=== PATIENT | female | born 1940 | race Caucasian/White ===

== ENCOUNTER → 2023-12-10 10:59 | Outpatient (REF) | payer MEDICARE, SELFPAY | LOC: WDC 10:59 | PROVIDERS: ATTENDING PHYSICIAN Obstetrics & Gynecology Gynecology; FAMILY PHYSICIAN Family Medicine | DX: Z12.31 Encounter for screening mammogram for malignant neoplasm of breast (principal) | CPT/HCPCS: 77063; 77067 ==

== ENCOUNTER → 2024-12-10 10:58 | Outpatient (REF) | payer MEDICARE, SELFPAY | LOC: WDC 10:58 | PROVIDERS: ATTENDING PHYSICIAN Obstetrics & Gynecology Gynecology; FAMILY PHYSICIAN Family Medicine | DX: Z12.31 Encounter for screening mammogram for malignant neoplasm of breast (principal) | CPT/HCPCS: 77063; 77067 ==

== ENCOUNTER 2025-01-02 11:07 | Emergency (ER) | payer MEDICARE, SELFPAY ==
[2025-01-02 11:09] VITALS: BP 136/70
--- NOTE | 2025-01-02 12:03 | ED.MUSCINJ ---
HPI-Injury
General
Chief Complaint: Fall
Source: patient
Exam Limitations: none
Time Seen by Provider: 01/02/25 11:46
Nursing documentation reviewed up to this point in time: agreed with
History of Present Illness-Injury
Initial Injury comments:
84-year-old female with history of HTN was going up her steps last night holding something in her left hand and holding onto the railing with her right hand, she slipped on the step and fell injuring her right rib. She denies head injury or any
other injury
Past History
Past History
ED Past Medical History: HTN and Other (Kidney stones)
ED Past Surgical History: Urological (Lithotripsy and stent placement)
Social History
Tobacco: Non-smoker
Alcohol: None
Drug: None
Personal:
Review of Systems
Review of Systems
Allergies reviewed?: Yes
All Other Systems: ROS reviewed and negative except as documented in HPI and ROS
Respiratory: Denies trouble breathing
ABD/GI: Denies abdominal pain or nausea
: Denies incontinence
Musculoskeletal: Reports back pain (Pain right mid ribs); Denies neck pain
Skin: Reports no symptoms
Neurological: Reports no symptoms
Phy Exam
Physical Exam
Physical Exam:
GENERAL: No acute distress. A&Ox3.
CONSTITUTIONAL: Afebrile.
EYES: clear, conjunctivae normal
ENMT: moist mucus membranes, Pharynx nl
RESPIRATORY: Regular respirations, nonlabored, lungs clear.
CARDIOVASCULAR: Regular rate and rhythm, no murmurs, no rubs.
GI: Soft, nontender, normal BS
MUSCULOSKELETAL: No spinal bony tenderness. Tender to palpate over mid right ribs. No bruising or swelling here. Moves with ease. Well perfused.
SKIN: Warm, dry, pink
PSYCH: Normal mood and affect. Well kept, interactive and appropriate
NEUROLOGIC: Awake, alert and oriented. No focal neurological deficits
Injury Course
Orders/Labs/Results
Orders:
Orders
01/02/25 11:13
Ribs, Right 3 View W/PA Chest [CR Ribs-right 3 Vw W/pa Chest*] Urgent
Comment:
Reason For Exam: fall/pain
MDM/Problems Addressed
Differential Diagnosis Includes:
Rib contusion, rib fracture.
MDM/Problems Addressed:
84-year-old female with history of HTN was going up her steps last night holding something in her left hand and holding onto the railing with her right hand, she slipped on the step and fell injuring her right rib. She denies head injury or any
other injury
X-ray right ribs initially read by this examiner: Nondisplaced fracture of the lateral sixth rib
Reading confirmed by radiology read.
Rib belt applied with stated much improvement in pain.
Patient ambulating well, no other injury, discharged to care of friend.
*Critical Care Note
Total Time (30-74mins, 75-104mins- exclusive of procedures): Not Applicable
ED Attending Note
-
Portions of this chart may have been created with voice recognition software.� Occasional wrong word or��sound alike� substitutions may have occurred due to the inherent limitations of voice recognition software.
Discharge Plan
Departure
Patient Disposition: Home (Routine Discharge)
Date of Disposition: 01/02/25
Time of Disposition: 12:00
Patient with high blood pressure during this ER visit?: No
Condition: Good
Discharge Problem:
Fall from slip, trip, or stumble, Rib fracture
Instructions: Rib fracture or bruised rib - ED discharge instructions
Prescriptions:
No Action
calcium carbonate [Calcium 600] 600 MG tablet
600 mg PO BID
amlodipine 10 MG tablet
10 mg PO DAILY
hydrochlorothiazide 25 MG tablet
25 mg PO DAILY
PreserVision Lutein 1 EACH capsule
1 ea PO BID
therapeutic multivitamin Tablet
1 tab PO DAILY
potassium citrate 10 mEq (1,080 mg) Tablet Extended Release
10 meq PO BID
Referrals:
Yvette Redmond MD [Active] - As needed
Activity Restrictions/Additional Instructions:
As we discussed, Tylenol as needed for pain
Wear the rib belt as long as it helps
Be sure to take 10 deep breaths every hour while awake for the next 2 weeks
Interventions
Interventions:
*Risk Screen - Suicide Last Done: 01/02/25 12:17
*General Assessment Last Done: 01/02/25 11:09
*Neglect/Abuse Screening Last Done: 01/02/25 12:17
*ED COVID-19 Vaccine History Last Done: 01/02/25 11:12
*Nursing Disposition Last Done: 01/02/25 12:16
Discharge Date and Time
Discharge Date/Time: 01/02/25 12:17
Print Language: PERSIAN
== END 2025-01-02 12:17 | disposition home or self-care (01) ==
LOC: EMR 11:07
PROVIDERS: EMERGENCY PHYSICIAN Emergency Medicine; FAMILY PHYSICIAN Family Medicine
DX: S22.31XA Fracture of one rib, right side, initial encounter for closed fracture (principal); W01.0XXA Fall on same level from slipping, tripping and stumbling without subsequent striking against object, initial encounter; I10 Essential (primary) hypertension; Z87.442 Personal history of urinary calculi
CPT/HCPCS: 99283; 71101

== ENCOUNTER 2025-01-14 17:47 | Inpatient (IN) | payer MEDICARE, SELFPAY ==
[2025-01-12 11:57] VITALS: BP 151/93
--- NOTE | 2025-01-12 13:21 | ED.GENMED ---
History of Present Illness
<KELY Bustamante - Last Filed: 01/13/25 15:19>
General
Chief Complaint: Musculo-Skeletal Complaint
Source: patient and other
Time Seen by Provider: 01/12/25 13:00
Nursing documentation reviewed up to this point in time: agreed with
History of Present Illness
History of Present Illness:
Patient is a 10-year-old female brought by her neighbor. Patient was sent by her family doctor for increasing dementia weight loss and new extreme flexion of her cervical spine. Patient apparently fell January 03 and was seen here in the ER diagnosed
with a rib fracture. Neighbor reports patient's neck flexion is relatively new.
Patient's is in a rehab facility and patient has no family. Department of aging is presently involved however family doctor requesting social work for possible placement as she is not safe to live on her own.
Patient does complain of upper back pain and has lidocaine patch in place.
she is a poor historian.
Past History
<KELY Bustamante - Last Filed: 01/13/25 15:19>
Past History
ED Past Medical History: HTN and Other (Kidney stones)
ED Past Surgical History: Urological (Lithotripsy and stent placement)
Social History
Tobacco: Non-smoker
Alcohol: None
Drug: None
Personal:
Review of Systems
<KELY Bustamante - Last Filed: 01/13/25 15:19>
Review of Systems
Allergies reviewed?: Yes
Other source history: other (pts PCP and neighbor )
All Other Systems: ROS reviewed and negative except as documented in HPI and ROS
Constitutional: Reports no symptoms
Respiratory: Reports no symptoms
Cardiac: Reports no symptoms
ABD/GI: Reports no symptoms
: Reports no symptoms
Musculoskeletal: Reports back pain
Skin: Reports no symptoms
Neurological: Reports no symptoms
Psychiatric: Reports no symptoms
Phy Exam
<KELY Bustamante - Last Filed: 01/13/25 15:19>
General Physical Exam
General Presentation: no apparent distress
General age: appears stated age
General Skin: warm and dry
General Habitus: elderly, failure to thrive and frail
General Mental: alert
General Hydration: appears well hydrated
Course
<KELY Bustamante - Last Filed: 01/13/25 15:19>
Orders/Labs/Results
Orders:
Orders
01/12/25 13:20
IV Insert/Care/Rem.- Treatment PRN
01/12/25 13:26
Electrocardiogram (*1) Stat
Reason for Study: Other
Other Reason for Exam: chest pain
EKG- Treatment ONCE
01/12/25 14:06
Complete Blood Count/With Diff Urgent
Comprehensive Metabolic Panel Urgent
Urinalysis Reflex To Culture Urgent
Date Specimen was Collected: 01/12/25
Time Specimen was Collected: 13:29
Urine Microscopic Reflex Cult Urgent
Urine Culture Urgent
MAYCOL Source: U
Specimen Description:
Date Specimen was Collected: 01/12/25
Time Specimen was Collected: 13:29
01/12/25 14:50
CR Thoracic Spine 3 Views Urgent
Reason For Exam: pain
01/12/25 15:05
CefTRIAXone [Rocephin] 1,000 mg IV NOW STA
01/12/25 15:29
Sterile Water [Sterile Water For Injection] 10 ml .ROUTE .STK-MED ONE
01/12/25 15:42
Admit/Transfer Patient As Directed
Co-Sign Provider:
Level of Care: Observation services
Assign to:: Medical/Surgical
Physician / Group: Samir
Diagnosis: Confusion
Code Status As Directed
Resuscitation Status: Full Code
PRN Pain Medication Management As Directed
May give lesser potent ordered pain med per pt: Yes
preference::
Protocol:: Medication orders for pain may be administered in a
manner that supports deferring to patient preference
when the pt is:
- Requesting an ordered lesser potent pain medication.
Least to most potent pain medications are defined
as: acetaminophen < NSAID < tramadol < opioids
(morphine, oxycodone, hydromorphone).
- Requesting a lesser dose of the same medication IF
ORDERED.
- Requesting a less intrusive route of administration
if both routes are prescribed by the provider (PO <
IV).
01/12/25 15:59
CR Chest - 2 Views Urgent
Comment:
Reason For Exam: confusion
01/12/25 16:23
Blood Culture Q30M
MAYCOL Source: Blood/Venous
Specimen Description:
01/12/25 16:24
Blood Culture Q30M
MAYCOL Source: Blood/Venous
Specimen Description:
01/12/25 18:22
Acetaminophen [Tylenol] 650 mg PO Q4HPRN PRN
Enoxaparin Sodium [Lovenox] 40 mg SC QPM
01/12/25 18:22
Case Management Consult Once
Case Management Consult: Discharge Planning
Comment: Patient's currently at [facility] and schedule from discharge on Saturday
DIETARY IP CONSULT Routine
Reason for Consult: weight loss
Activity As Directed
Activity Level: Out of Bed-Early Mobility
With Assistance
Pneumatic Compression Sleeves As Directed
Type: Knee high
Vital Signs As Directed
Frequency: Per unit guidelines
Ot Eval And Treat Routine
Pt Eval And Treat Routine
Activity Level: Out of Bed-Early Mobility
DX Deep Vein Thrombosis Video Routine
DX Deep Vein Thrombosis Video Routine
01/13/25 06:35
Basic Metabolic Panel IN AM
Complete Blood Count/No Diff IN AM
01/13/25 08:00
Amlodipine [Norvasc] 10 mg PO DAILY
01/13/25 16:00
CefTRIAXone [Rocephin] 1,000 mg IV Q24H
Abnormal Lab Results
01/12/25
14:06
MCH 33.6 H pg
(27.0-31.0)
Absolute Lymphs (auto) 0.7 L 10^3/uL
(1.2-3.4)
Neutrophils % 76.9 H %
(42.2-75.2)
Lymphocytes % 10.3 L %
(20.5-51.1)
BUN 31 H mg/dl
(7-17)
Glucose 132 H mg/dl
(70-99)
AST 42 H U/L
(14-36)
Urine Ketones 1+ A
(Negative)
Ur Occult Blood Reflex 2+ A
(Negative)
Leukocyte Esterase Rfl 2+ A
(Negative)
Urine RBC 3-6 A /HPF
(0-2)
Urine WBC (Reflex) 40-50 A /HPF
(0-5)
Urine Bacteria (Reflex) Moderate A
(Negative)
Urine Albumin (Reflex) 3+ A
(Neg - Trace)
01/12/25 14:06
01/12/25 14:06
Vital Signs
Initial and Last Documented VS:
Initial Vital Signs
Temp Pulse Resp BP Pulse Ox
97.6 F 87 20 151/93 98
01/12/25 11:57 01/12/25 11:57 01/12/25 11:57 01/12/25 11:57 01/12/25 11:57
Last Documented Vital Signs
Temp Pulse Resp BP Pulse Ox
98.6 F 68 16 137/82 96
01/13/25 07:00 01/13/25 08:34 01/13/25 07:00 01/13/25 08:34 01/13/25 11:56
<Cecil Umana PA-C - Last Filed: 01/12/25 15:19>
Orders/Labs/Results
Orders:
Orders
01/12/25 13:20
IV Insert/Care/Rem.- Treatment PRN
01/12/25 13:26
Electrocardiogram (*1) Stat
Reason for Study: Other
Other Reason for Exam: chest pain
EKG- Treatment ONCE
01/12/25 14:06
Complete Blood Count/With Diff Urgent
Comprehensive Metabolic Panel Urgent
Urinalysis Reflex To Culture Urgent
Date Specimen was Collected: 01/12/25
Time Specimen was Collected: 13:29
Urine Microscopic Reflex Cult Urgent
Urine Culture Urgent
MAYCOL Source: U
Specimen Description:
Date Specimen was Collected: 01/12/25
Time Specimen was Collected: 13:29
01/12/25 14:50
CR Thoracic Spine 3 Views Urgent
Reason For Exam: pain
01/12/25 15:05
CefTRIAXone [Rocephin] 1,000 mg IV NOW STA
01/12/25 15:29
Sterile Water [Sterile Water For Injection] 10 ml .ROUTE .STK-MED ONE
01/12/25 15:42
Admit/Transfer Patient As Directed
Co-Sign Provider:
Level of Care: Observation services
Assign to:: Medical/Surgical
Physician / Group: Samir
Diagnosis: Confusion
Code Status As Directed
Resuscitation Status: Full Code
PRN Pain Medication Management As Directed
May give lesser potent ordered pain med per pt: Yes
preference::
Protocol:: Medication orders for pain may be administered in a
manner that supports deferring to patient preference
when the pt is:
- Requesting an ordered lesser potent pain medication.
Least to most potent pain medications are defined
as: acetaminophen < NSAID < tramadol < opioids
(morphine, oxycodone, hydromorphone).
- Requesting a lesser dose of the same medication IF
ORDERED.
- Requesting a less intrusive route of administration
if both routes are prescribed by the provider (PO <
IV).
01/12/25 15:59
CR Chest - 2 Views Urgent
Comment:
Reason For Exam: confusion
01/12/25 16:23
Blood Culture Q30M
MAYCOL Source: Blood/Venous
Specimen Description:
01/12/25 16:24
Blood Culture Q30M
MAYCOL Source: Blood/Venous
Specimen Description:
01/12/25 18:22
Acetaminophen [Tylenol] 650 mg PO Q4HPRN PRN
Enoxaparin Sodium [Lovenox] 40 mg SC QPM
01/12/25 18:22
Case Management Consult Once
Case Management Consult: Discharge Planning
Comment: Patient's currently at [facility] and schedule from discharge on Saturday
DIETARY IP CONSULT Routine
Reason for Consult: weight loss
Activity As Directed
Activity Level: Out of Bed-Early Mobility
With Assistance
Pneumatic Compression Sleeves As Directed
Type: Knee high
Vital Signs As Directed
Frequency: Per unit guidelines
Ot Eval And Treat Routine
Pt Eval And Treat Routine
Activity Level: Out of Bed-Early Mobility
DX Deep Vein Thrombosis Video Routine
DX Deep Vein Thrombosis Video Routine
01/13/25 06:35
Basic Metabolic Panel IN AM
Complete Blood Count/No Diff IN AM
01/13/25 08:00
Amlodipine [Norvasc] 10 mg PO DAILY
01/13/25 16:00
CefTRIAXone [Rocephin] 1,000 mg IV Q24H
Abnormal Lab Results
01/12/25
14:06
MCH 33.6 H pg
(27.0-31.0)
Absolute Lymphs (auto) 0.7 L 10^3/uL
(1.2-3.4)
Neutrophils % 76.9 H %
(42.2-75.2)
Lymphocytes % 10.3 L %
(20.5-51.1)
BUN 31 H mg/dl
(7-17)
Glucose 132 H mg/dl
(70-99)
AST 42 H U/L
(14-36)
Urine Ketones 1+ A
(Negative)
Ur Occult Blood Reflex 2+ A
(Negative)
Leukocyte Esterase Rfl 2+ A
(Negative)
Urine RBC 3-6 A /HPF
(0-2)
Urine WBC (Reflex) 40-50 A /HPF
(0-5)
Urine Bacteria (Reflex) Moderate A
(Negative)
Urine Albumin (Reflex) 3+ A
(Neg - Trace)
01/12/25 14:06
01/12/25 14:06
Vital Signs
Initial and Last Documented VS:
Initial Vital Signs
Temp Pulse Resp BP Pulse Ox
97.6 F 87 20 151/93 98
01/12/25 11:57 01/12/25 11:57 01/12/25 11:57 01/12/25 11:57 01/12/25 11:57
Last Documented Vital Signs
Temp Pulse Resp BP Pulse Ox
98.6 F 68 16 137/82 96
01/13/25 07:00 01/13/25 08:34 01/13/25 07:00 01/13/25 08:34 01/13/25 11:56
<KELY Bustamante - Last Filed: 01/13/25 15:19>
MDM/Problems Addressed
MDM/Problems Addressed:
As documented patient is an 84-year-old female sent by family doctor for evaluation. As per PCP via [place] text patient has had a weight loss looks disheveled failure to thrive more confused than normal she was seen here at the end of December for rib
fracture and she appears more hunched over as well. Patient does claim mild upper back discomfort she is here with a neighbor. She does live alone in area of aging is involved. As per family doctor patient will likely need case management social
worker involved and possible placement. Patient does have a UTI will admit for UTI however will check for dehydration. Patient is afebrile with normal white count.
Chronic conditions affecting care:
Worsening dementia presently living alone in rehab
<Cecil Umana PA-C - Last Filed: 01/12/25 15:19>
*Critical Care Note
Total Time (30-74mins, 75-104mins- exclusive of procedures): Not Applicable
ED Attending Note
<KELY Bustamante - Last Filed: 01/13/25 15:19>
-
Portions of this chart may have been created with voice recognition software.� Occasional wrong word or��sound alike� substitutions may have occurred due to the inherent limitations of voice recognition software.
Discharge Plan
Departure
Patient Disposition: Admit
Date of Disposition: 01/12/25
Time of Disposition: 15:19
Presentation/result/management discussed w/ accepting MD/DO: Hospitalist
Discharge Problem:
Acute UTI
Interventions
Interventions:
*Risk Screen - Suicide Last Done: 01/12/25 18:35
*General Assessment Last Done: 01/12/25 11:57
*Neglect/Abuse Screening Last Done: 01/12/25 11:57
*ED- Fall Risk Assessment Last Done: 01/12/25 13:45
*ED COVID-19 Vaccine History Last Done: 01/12/25 18:35
*Nursing Disposition Last Done: 01/12/25 18:31
ED-Musculoskeletal Assessment Last Done: 01/12/25 13:45
ED-Psychological Assessment Last Done: 01/12/25 13:45
Discharge Date and Time
Discharge Date/Time: 01/12/25 18:20
[2025-01-12 13:40] VITALS: BMI 17.5
[2025-01-12 14:00] VITALS: BP 140/78
[2025-01-12 14:21] LABS: Urine Albumin 3+ (Neg - Trace); Urine Bilirubin Negative (Negative); Urine Character Clear (Clear); Urine Color Yellow; Urine Glucose Negative (Negative); Urine Ketone 1+ (Negative); Urine Leukocyte 2+ (Negative); Urine Nitrite Negative (Negative); Urine Occult Blood 2+ (Negative); Urine Urobilinogen Negative (Neg - 1+)
[2025-01-12 14:23] LABS: % Basophils 0.6 % (0-2); % Eosinophils 3.3 % (0-6); % Immature Granulocytes 0.5 % (0-0.5); % Lymphocytes 10.3 % (20.5-51.1); % Monocytes 8.4 % (1.7-9.3); % Neutrophils 76.9 % (42.2-75.2); Absolute Eosinophils 0.2 10^3/uL (0-0.7); Absolute Lymphocytes 0.7 10^3/uL (1.2-3.4); Absolute Monocytes 0.5 10^3/uL (0.1-0.6); Absolute Neutrophils 4.9 10^3/uL (1.4-6.5); Hematocrit 42.7 % (37.0-47.0); Hemoglobin 14.6 g/dL (12.0-16.0); Mean Corp Hgb Conc. 34.2 g/dL (33.0-37.0); Mean Corpuscular Hgb 33.6 pg (27.0-31.0); Mean Corpuscular Volume 98.2 fL (81.0-99.0); Mean Platelet Volume 9.1 fL (7.4-10.4); Nucleated Red Blood Cells % 0 %; Platelet Count 298 10^3/uL (130-400); Red Blood Cell Count 4.35 10^6/uL (4.20-5.40); Red Cell Dist. Width 12.8 % (11.5-14.5); White Blood Cell Count 6.4 10^3/uL (4.8-10.8)
[2025-01-12 14:59] LABS: Urine Urothelial Cell 0-2 /LPF (FEW)
[2025-01-12 15:02] LABS: Urine Bacteria Moderate (Negative); Urine Calcium Oxalate Crystals Present; Urine White Cell 40-50 /HPF (0-5)
[2025-01-12 15:03] LABS: Urine Mucus Moderate
[2025-01-12 15:11] LABS: ALT (SGPT) 33 U/L (0-35); AST (SGOT) 42 U/L (14-36); Albumin 4.4 g/dl (3.5-5.0); Alkaline Phosphatase 52 U/L (38-126); Blood Urea Nitrogen 31 mg/dl (7-17); Calcium 9.5 mg/dl (8.4-10.2); Carbon Dioxide 28 mmol/L (22-30); Chloride 106 mmol/L (98-107); Estimated Creatinine Clearance 45 ml/min; Glucose 132 mg/dl (70-99); Potassium 3.9 mmol/L (3.5-5.1); Sodium 140 mmol/L (135-145); Total Bilirubin 0.6 mg/dl (0.2-1.3); Total Protein 6.5 g/dl (6.3-8.2); eGFR > 60.00
[2025-01-12] MEDS: ROCEPHIN 1000 MG IV (15:30)
--- NOTE | 2025-01-12 15:45 | HPS.HSE ---
Family Physician
-
Family Physician: Yvette Redmond
Chief Complaint
-
Confusion and Weight Loss
History of Present Illness
Patient is an 84 y/o female past medical history of hypertension who presents with increased confusion. Additional history obtain from patient's neighbor at the bedside. Neighbor initially noted some confusion after the holidays. Patient's
sustained a heart attack about a month ago and has been at a fdc facility since that time. Over the last month the neighbor has noted signficant decline in the patient particularly increased confusion. Patient saw her primary care
provider today who notes a 10 lb weight loss. Neighbor expresses concern that patient is not caring for herself and not eating much at home.
Medical History
Past Medical History
Past Medical History: Reports Other
Additional Past Medical History:
Essential Hypertension
Hyperlipidemia
Osteoporosis
Nephrolithiases
Macular Degeration
Past Surgical History: Reports Other
Additional Past Surgical History:
Inguinal Hernia Repair
Wrist ORIF
Right Breast Biopsy
Left Hip Hemiarthroplasty
Lithotripsy
Social History
Tobacco: Non-smoker
Alcohol: None
Personal:
Living: Other (Patient currently living alone while is at a SNF)
Family History
Family History: Not pertinent
Allergies / Home Medications
Allergies reflects when Allergies were last updated in [facility].
Home Medications with original date entered in [facility]
Allergy/Medication List:
Allergies
Allergy/AdvReac Type Severity Reaction Status Date / Time
No Known Drug Allergies Allergy Unknown Verified 01/12/25 11:57
Home Medications
amlodipine 10 mg tablet 10 mg PO DAILY 11/10/12
potassium citrate 10 mEq (1,080 mg) tablet,extended release 10 meq PO BID 03/08/22
therapeutic multivitamin 1 tab PO DAILY 03/08/22
calcium 500 mg (as carbonate)-vitamin D3 10 mcg (400 unit) tablet (Calcium 500 + D) 1 tab PO BID 01/12/25
hydrochlorothiazide 25 mg tablet 25 mg PO DAILY 01/12/25
vitamins A,C,[id number] 2,148 mcg-113 mg-45 mg-17.4 mg tablet (PreserVision AREDS) 1 tab PO BID 01/12/25
Review of Systems
-
A 12 point ROS was completed and negative except as noted: Yes
Constitutional: Denies Fever
Respiratory: Denies Cough or Trouble Breathing
Cardiac: Denies Chest Pain or Palpitations
Abdomen/GI: Denies Abdominal Pain, Nausea, Vomiting or Diarrhea
: Denies Dysuria or Frequency
Physical Exam
Vital Signs
Vital Signs
Temp Pulse Resp BP Pulse Ox
97.6 F 69 17 140/78 99
01/12/25 11:57 01/12/25 14:30 01/12/25 14:30 01/12/25 14:00 01/12/25 14:30
Physical Exam
General: Comfortable, Conversant and Other (Disheveled appearing)
HEENT: Anicteric and Moist mucous membranes
Respiratory: Clear and Non Labored Respirations
Cardiac: S1/S2 and Regular Rhythm
GI: Soft and Non Tender
Rectal: Deferred by Provider
Musculoskeletal: No Clubbing, No Cyanosis and No Edema
Skin: Warm and Dry
Neuro: Awake, Alert and Nonfocal/grossly intact
Psych: Calm
Laboratory Results
-
01/12/25 14:06
01/12/25 14:06
Laboratory Results
Total Bilirubin 0.6 mg/dl (0.2-1.3) 01/12/25 14:06
AST 42 U/L (14-36) H 01/12/25 14:06
ALT 33 U/L (0-35) 01/12/25 14:06
Alkaline Phosphatase 52 U/L (38-126) 01/12/25 14:06
Data Reviewed
-
Lab Data: Labs Reviewed by me
Impression/Plan
-
Increased Confusion, suspect likely related to progressive dementia, possibly exacerbated by infection / UTI
-Urinalysis is abnormal - Continue empiric ceftriaxone pending urine culture
-Check CXR
-Check blood cultures
Weight Loss
-10lb weight loss noted by PCP suspect related to nutritional deficiency from poor oral intake
-Consult Dietary
Essential Hypertension
-Continue amlodipine
-Hold HCTZ
DVT proph: Lovenox
Code Status: Full Code
--- NOTE | 2025-01-12 16:05 | W.PN.UPDATE ---
Update Note
Progress Note Update
Patient was independently examined and I agree with H&P written on the same day. In addition: 84yo F sent by PCP due to onbgoing weight loss and worsening confusion for past couple of months
-UTI
-Adult FTT
Ceftriaxone, PT/OT, placement
We have spent at least 78min admitting the patient
--- NOTE | 2025-01-12 18:15 | EDRN ---
Patient taken to room 408-1 on stretcher by construction tech.
[2025-01-12] MEDS: LOVENOX 40 MG SC (18:48)
--- NOTE | 2025-01-12 19:11 | PTCARENOTE ---
Received pt from ED into room 408-1. Pt ambulatory around room with stand by assistance. Pt AAOx1. Could not name place or year. Forgetful/confused. Bed alarm in place. Educated to use call tay. Bruise to R flank area. Administered Lovenox per
order. Pt oriented to room, no complaints at this time, call tay within reach.
[2025-01-12] MEDS: TYLENOL 650 MG PO (20:43)
[2025-01-12 23:30] VITALS: BP 128/72
[2025-01-13] MEDS: TYLENOL 650 MG PO ×3 (00:55→20:43)
[2025-01-13 06:59] LABS: Hematocrit 41.2 % (37.0-47.0); Hemoglobin 14.2 g/dL (12.0-16.0); Mean Corp Hgb Conc. 34.5 g/dL (33.0-37.0); Mean Corpuscular Hgb 33.1 pg (27.0-31.0); Mean Platelet Volume 8.9 fL (7.4-10.4); Platelet Count 307 10^3/uL (130-400); Red Blood Cell Count 4.29 10^6/uL (4.20-5.40); Red Cell Dist. Width 12.6 % (11.5-14.5); White Blood Cell Count 5.7 10^3/uL (4.8-10.8)
[2025-01-13 07:00] VITALS: BP 137/82
[2025-01-13 07:26] LABS: Blood Urea Nitrogen 25 mg/dl (7-17); Calcium 9.2 mg/dl (8.4-10.2); Carbon Dioxide 27 mmol/L (22-30); Chloride 106 mmol/L (98-107); Estimated Creatinine Clearance 53 ml/min; Glucose 102 mg/dl (70-99); Potassium 3.9 mmol/L (3.5-5.1); Sodium 140 mmol/L (135-145); eGFR > 60.00
--- NOTE | 2025-01-13 07:43 | W.PN.HOSP.TC ---
Addendum entered and electronically signed by Polo Ford MD 01/13/25 17:32:
Patient demonstrated no confusion on exam today
Original Note:
Today's Communication/Plan
-
Continue antibiotics
Await cultures
PT/OT
See plan
Assessment / Plan
Assessment / Plan
Physical Exam
General: Comfortable, Conversant and Other (Disheveled appearing)
HEENT: Moist mucous membranes
Respiratory: Clear and Non Labored Respirations
Cardiac: S1/S2 and Regular Rhythm
GI: Soft and Non Tender. Positive bowel sounds.
Musculoskeletal: No Cyanosis and No Edema
Skin: Warm and Dry
Neuro: Awake, Alert and Nonfocal/grossly intact
Psych: Calm
Assessment/Plan
84 y/o female past medical history of hypertension who presents with increased confusion. Additional history obtain from patient's neighbor at the bedside. Neighbor initially noted some confusion after the holidays. Patient's sustained a
heart attack about a month ago and has been at a halfway facility since that time. Over the last month the neighbor has noted signficant decline in the patient particularly increased confusion. Patient saw her primary care provider today
who notes a 10 lb weight loss. Neighbor expresses concern that patient is not caring for herself and not eating much at home.
Increased Confusion, suspect likely related to progressive dementia, possibly exacerbated by infection / UTI
-Urinalysis is abnormal - Continue empiric ceftriaxone pending urine culture which is growing Proteus, await sensitivities
-CXR with no acute cardiopulmonary process
-Blood cultures with no growth to date
Weight Loss
-10lb weight loss noted by PCP suspect related to nutritional deficiency from poor oral intake
-Consult Dietary
Essential Hypertension
-Continue amlodipine
-Hold HCTZ
History of Right 6th Rib Fracture
DVT proph: Lovenox
Code Status: Full Code
Anticipated Discharge: 24 - 48 hours
Subjective/Interval History
-
Date of Service: January 13, 2025
Patient was seen and examined. She denied any symptoms or complaints.
Objective Data
-
Labs:
Laboratory Results
01/13/25
06:35
WBC 5.7
Hgb 14.2
Hct 41.2
Plt Count 307
Sodium 140
Potassium 3.9
Chloride 106
Carbon Dioxide 27
BUN 25 H
Creatinine 0.6
Glucose 102 H
Calcium 9.2
Vital Signs:
Vital Signs
Temp Pulse Resp BP Pulse Ox
97.4 F 66 16 128/72 97
01/12/25 23:30 01/12/25 23:30 01/12/25 23:30 01/12/25 23:30 01/12/25 23:30
I&O
01/12/25 01/13/25 01/14/25
06:59 06:59 06:59
Intake Total 570 / 570
Balance 570 / 570
[2025-01-13] MEDS: NORVASC 10 MG PO (08:34)
[2025-01-13 11:50] VITALS: BP 143/95; PULSE 85; O2SAT 97
[2025-01-13 12:01] VITALS: BP 143/95; PULSE 85; O2SAT 97
--- NOTE | 2025-01-13 12:31 | CM ---
Patient seen bedside, initial assessment completed. Patient is an 84 y/o female past medical history of hypertension who presents with increased confusion.
Patient resides w/ spouse in a multi level home, 4 steps to enter. Patient is independent in all areas. Grab bars and shower chair in the bathroom. No SNF/HC hx reported. Patient still drives but not often. Patient's spouse is currently at [facility] for skilled rehab.
Address, point of contacts and insurance verified. Patient's physical address is [facility] [address], [place]
PCP: Yvette Redmond
Pharmacy: [facility]
Patient admitted as obs. TREVINO form verbally reviewed, copy provided, copy on chart
Therapy assessed, rec SNF at d/c. to discuss w/ patient and place referrals
Plan: SNF recommended
[2025-01-13 14:35] VITALS: BMI 17.5
[2025-01-13 15:00] VITALS: BP 127/76
--- NOTE | 2025-01-13 15:04 | PTOTSP ---
FAMILY LIFE COUNSELOR Evaluation
No overt signs of dysphagia or aspiration.
SLUMS= 05/11 concerning for a significant cognitive linguistic impairment (i.e., attention, memory, executive function/safety awareness). Cognitive changes impact expressive language/pragmatics (i.e., phonemic paraphasias, tangential conversation)
and receptive language (i.e., decreased self-monitoring of errors). Factors likely impacting cognitive linguistic skills include concern for UTI and concern for a progressive dementia.
Recommend:
1. Regular, Thin liquids
2. Medications as best tolerated
3. Neuropsych evaluation after acute reversible causes of cognitive linguistic changes such as UTI are addressed.
[2025-01-13] MEDS: ROCEPHIN 1000 MG IV (15:33)
[2025-01-13] MEDS: STERILE WATER FOR INJECTION 10 ML IV (15:34)
[2025-01-13] MEDS: LOVENOX 40 MG SC (17:57)
[2025-01-13 21:00] VITALS: BP 149/95
[2025-01-13] MEDS: PEPCID 20 MG IV (21:33)
[2025-01-13] MEDS: MELATONIN 5 MG PO (21:33)
[2025-01-13] MEDS: NSS (PRESERVATIVE FREE) 8 ML IV (21:34)
[2025-01-13 23:00] VITALS: BP 156/103
[2025-01-14 03:29] VITALS: BP 151/94
[2025-01-14] MEDS: TYLENOL 650 MG PO (05:00)
--- NOTE | 2025-01-14 05:48 | PTCARENOTE ---
late entry-2100 pt c/o indigestion w/small amt of vomit. VS RT arm 155/119-86, lt arm 149/95-84-20-98.6. FORESTRY TECHNICIAN notified, pepcid IV ordered. indigestion resolved after IV pepcid
[2025-01-14 07:09] VITALS: BP 136/79
--- NOTE | 2025-01-14 08:04 | W.PN.HOSP.TC ---
Today's Communication/Plan
-
Spoke to case management who confirmed that given social issues, she cannot be discharged until tomorrow at the earliest
Assessment / Plan
Assessment / Plan
Physical Exam
General: Comfortable, Conversant and Other (Disheveled appearing)
HEENT: Moist mucous membranes
Respiratory: Clear and Non Labored Respirations
Cardiac: S1/S2 and Regular Rhythm
GI: Soft and Non Tender. Positive bowel sounds.
Musculoskeletal: No Cyanosis and No Edema
Skin: Warm and Dry
Neuro: Awake, Alert and Nonfocal/grossly intact
Psych: Calm
Assessment/Plan
84 y/o female past medical history of hypertension who presents with increased confusion. Additional history obtain from patient's neighbor at the bedside. Neighbor initially noted some confusion after the holidays. Patient's sustained a
heart attack about a month ago and has been at a fpc facility since that time. Over the last month the neighbor has noted signficant decline in the patient particularly increased confusion. Patient saw her primary care provider today
who notes a 10 lb weight loss. Neighbor expresses concern that patient is not caring for herself and not eating much at home.
Increased Confusion, suspect likely related to progressive dementia, possibly exacerbated by infection / UTI
-Urinalysis is abnormal - changed to Cefdinir based on Proteus sensitivities
-CXR with no acute cardiopulmonary process
-Blood cultures with no growth to date
Weight Loss
-10lb weight loss noted by PCP suspect related to nutritional deficiency from poor oral intake
-Consult Dietary
Essential Hypertension
-Continue amlodipine
-Hold HCTZ
History of Right 6th Rib Fracture
DVT proph: Lovenox
Code Status: Full Code
Anticipated Discharge: 24 - 48 hours
Subjective/Interval History
-
Date of Service: January 14, 2025
Patient was seen and examined. She denied any complaints.
Objective Data
-
Labs:
Laboratory Results
01/14/25
07:53
WBC Pending
Hgb Pending
Hct Pending
Plt Count Pending
Sodium Pending
Potassium Pending
Chloride Pending
Carbon Dioxide Pending
BUN Pending
Creatinine Pending
Glucose Pending
Calcium Pending
Total Bilirubin Pending
AST Pending
ALT Pending
Alkaline Phosphatase Pending
Vital Signs:
Vital Signs
Temp Pulse Resp BP Pulse Ox
98.2 F 77 18 151/94 97
01/13/25 23:00 01/14/25 03:29 01/13/25 23:00 01/14/25 03:29 01/13/25 23:00
I&O
01/13/25 01/14/25 01/15/25
06:59 06:59 06:59
Intake Total 810 / 810
Balance 810 / 810
[2025-01-14 08:29] LABS: Hematocrit 44.6 % (37.0-47.0); Hemoglobin 15.4 g/dL (12.0-16.0); Mean Corp Hgb Conc. 34.5 g/dL (33.0-37.0); Mean Corpuscular Hgb 33.6 pg (27.0-31.0); Mean Corpuscular Volume 97.4 fL (81.0-99.0); Mean Platelet Volume 8.7 fL (7.4-10.4); Platelet Count 325 10^3/uL (130-400); Red Blood Cell Count 4.58 10^6/uL (4.20-5.40); Red Cell Dist. Width 12.7 % (11.5-14.5); White Blood Cell Count 6.9 10^3/uL (4.8-10.8)
[2025-01-14] MEDS: NORVASC 10 MG PO (09:16)
[2025-01-14 10:25] LABS: ALT (SGPT) 31 U/L (0-35); Albumin 4.5 g/dl (3.5-5.0); Alkaline Phosphatase 74 U/L (38-126); Blood Urea Nitrogen 19 mg/dl (7-17); Calcium 10.1 mg/dl (8.4-10.2); Carbon Dioxide 33 mmol/L (22-30); Chloride 103 mmol/L (98-107); Estimated Creatinine Clearance 45 ml/min; Glucose 100 mg/dl (70-99); Sodium 142 mmol/L (135-145); Total Bilirubin 0.6 mg/dl (0.2-1.3); eGFR > 60.00
[2025-01-14 10:41] LABS: AST (SGOT) 26 U/L (14-36)
--- NOTE | 2025-01-14 13:11 | CM ---
Addendum entered by Crystal Pearce 01/14/25 13:20:
laundromat manager spoke with Monique [phone], emergency contact for patient and she is available to transport patient tomorrow, she will need a call.
Original Note:
laundromat manager reviewed patient's chart and met with patient and patient is ambulating hallway and plan is to home when stable, piano case and bench assembler received a call from PCPs Dr. Redmond and Dr. Salvador, and they are in agreement with a home discharge per
physician familia does better at home with spouse, piano case and bench assembler sent a referral to [facility] for home care and reached out to [facility] [address] to follow patient in home.
Plan; Home with spouse when stable, and [facility], referral sent to [facility] [address].
--- NOTE | 2025-01-14 13:58 | VNURNOTE ---
Home Health Liaison met with patient at bedside to discuss [facility] nurse/therapy, visits, schedule and homebound status. Patient is agreeable and understands that visits at home will be 2-3 x per week to assess and teach medical management. Home
health MARKETING OPERATIONS MANAGER will be added to referral for follow up on [facility] case. Patient is aware that [facility] will contact them for start of care in 1-2 days after discharge from .
[facility] referral completed in [facility].
[2025-01-14 14:50] VITALS: BP 155/93
[2025-01-14] MEDS: LOVENOX 40 MG SC (17:57)
[2025-01-14] MEDS: ROCEPHIN 1000 MG IV (17:57)
[2025-01-14] MEDS: STERILE WATER FOR INJECTION 10 ML IV (17:57)
[2025-01-14] MEDS: OMNICEF 300 MG PO (20:36)
[2025-01-14 22:53] VITALS: BP 131/71
[2025-01-15 05:22] VITALS: BMI 16.9
[2025-01-15 07:50] VITALS: BP 154/90
[2025-01-15] MEDS: OMNICEF 300 MG PO ×2 (08:44→21:59)
[2025-01-15] MEDS: NORVASC 10 MG PO (08:44)
--- NOTE | 2025-01-15 12:54 | CM ---
Addendum entered by Izabela Poon RN 01/15/25 15:38:
Per nurse Ana Maria; patient has been off 1:1 sitter since 1am.
Addendum entered by Izabela Poon RN 01/15/25 13:16:
Per KIMBER Amaya APS Worker is Ana Paula Villa at ph [phone].
Original Note:
Patient with Dx Increased Confusion, suspect likely related to progressive dementia, possibly exacerbated by infection / UTI. Room air. PT/OT recommend skilled rehab. Per nurse; confused, forgetful.
Spoke with Lynnette, [facility]; they are discharging the patient's Chai home today as his insurance is no longer approving rehab. Lynnette says is confused/forgetful and will have a friend check on him, and referral was
made to [facility].
Spoke with Monique, patient's primary contact/friend; she is aware that both patient and are confused/forgetful and function better when they are together. Patient has no children. She spoke with KIMBER and also Monique Garcia with [facility] who has appointment with patient/ next 01/20. Monique is aware that we are working to get patient into [facility].
Spoke with patient's Chai, while at [facility]; he was confused and unable to converse on the phone.
Met with patient who was initially confused, unsure where she was and what SNF her was in. Reoriented her and discussed short term SNF for rehab- she agrees to go to [facility].
Spoke with Saima, [facility]; discussed patient's rehab and social issues due to patient and 's confusion/forgetfulness. She agrees to accept once insurance approves.
KIMBERLY Brian Rail Car Repairer will request insurance auth.
Plan [facility] once insurance approves.
--- NOTE | 2025-01-15 13:00 | W.PN.HOSP.TC ---
Today's Communication/Plan
-
Case management working on SNF placement
Assessment / Plan
Assessment / Plan
Physical Exam
General: Comfortable, Conversant and Other (Disheveled appearing)
HEENT: Moist mucous membranes
Respiratory: Clear and Non Labored Respirations
Cardiac: S1/S2 and Regular Rhythm
GI: Soft and Non Tender. Positive bowel sounds.
Musculoskeletal: No Cyanosis and No Edema
Skin: Warm and Dry
Neuro: Awake, Alert and Nonfocal/grossly intact
Psych: Calm
Assessment/Plan
84 y/o female past medical history of hypertension who presents with increased confusion. Additional history obtain from patient's neighbor at the bedside. Neighbor initially noted some confusion after the holidays. Patient's sustained a
heart attack about a month ago and [facility]. Over the last month the neighbor has noted signficant decline in the patient particularly increased confusion. Patient saw her primary care provider today
who notes a 10 lb weight loss. Neighbor expresses concern that patient is not caring for herself and not eating much at home.
Increased Confusion, suspect likely related to progressive dementia, possibly exacerbated by infection / UTI
-Confusion remains on and off
-Urinalysis is abnormal - changed to Cefdinir based on Proteus sensitivities
-CXR with no acute cardiopulmonary process
-Blood cultures with no growth to date
Weight Loss
-10lb weight loss noted by PCP suspect related to nutritional deficiency from poor oral intake
-Consult Dietary
Essential Hypertension
-Continue amlodipine
-Hold HCTZ
History of Right 6th Rib Fracture
DVT proph: Lovenox
Code Status: Full Code
Disposition: SNF
Anticipated Discharge: 24 - 48 hours
Subjective/Interval History
-
Date of Service: January 15, 2025
Patient was seen and examined. She needed help with eating and swallowing this morning, she has had issues with swallowing in the past.
Objective Data
-
Vital Signs:
Vital Signs
Temp Pulse Resp BP Pulse Ox
98.4 F 89 18 154/90 98
01/15/25 07:50 01/15/25 07:50 01/15/25 07:50 01/15/25 08:44 01/15/25 07:50
I&O
01/14/25 01/15/25 01/16/25
06:59 06:59 06:59
Intake Total 810 / 810 360 / 360 200 / 200
Balance 810 / 810 360 / 360 200 / 200
--- NOTE | 2025-01-15 14:19 | CM ---
Addendum entered by Samaria Castellon 01/15/25 15:57:
Contacted [facility]; agent reported that clinicals were received; review pending
Addendum entered by Samaria Castellon 01/15/25 15:55:
correction: Pending Auth Reference # [id number]
Original Note:
Insurance Authorization submitted to [place] and [facility] # ; Clinicals faxed to [phone]
Pending Reference # [id number]
[facility] approval
[2025-01-15 14:36] LABS: Hematocrit 42.6 % (37.0-47.0); Hemoglobin 14.5 g/dL (12.0-16.0); Mean Corpuscular Hgb 33.3 pg (27.0-31.0); Mean Corpuscular Volume 97.7 fL (81.0-99.0); Mean Platelet Volume 8.7 fL (7.4-10.4); Platelet Count 309 10^3/uL (130-400); Red Blood Cell Count 4.36 10^6/uL (4.20-5.40); Red Cell Dist. Width 12.8 % (11.5-14.5); White Blood Cell Count 6.4 10^3/uL (4.8-10.8)
[2025-01-15] MEDS: TIGAN 200 MG IM (14:41)
[2025-01-15 15:02] LABS: ALT (SGPT) 41 U/L (0-35); AST (SGOT) 31 U/L (14-36); Albumin 4.3 g/dl (3.5-5.0); Alkaline Phosphatase 81 U/L (38-126); Blood Urea Nitrogen 23 mg/dl (7-17); Calcium 9.9 mg/dl (8.4-10.2); Carbon Dioxide 32 mmol/L (22-30); Chloride 104 mmol/L (98-107); Estimated Creatinine Clearance 44 ml/min; Glucose 120 mg/dl (70-99); Lipase 39 U/L (23-300); Magnesium 2.3 mg/dl (1.6-2.3); Potassium 3.6 mmol/L (3.5-5.1); Sodium 141 mmol/L (135-145); Total Bilirubin 0.5 mg/dl (0.2-1.3); Total Protein 6.5 g/dl (6.3-8.2); eGFR > 60.00
[2025-01-15 15:06] LABS: Troponin I < 0.012 ng/ml
[2025-01-15 15:26] VITALS: BP 152/84
--- NOTE | 2025-01-15 16:01 | PTCARENOTE ---
patient was placed on 1:1 observation 01/14 for getting OOB unassisted and wondering in hallway. per production shift supervisor nurse in report, 1:1 observation was stopped 01/15 0100 and bed alarm and chair alarms were initiated. plan of care on going
[2025-01-15] MEDS: LOVENOX SC (18:20)
[2025-01-15 21:14] LABS: Troponin I < 0.012 ng/ml
[2025-01-15 23:12] VITALS: BP 131/70
[2025-01-16 04:35] LABS: Troponin I < 0.012 ng/ml
[2025-01-16 06:55] VITALS: BMI 17.0
[2025-01-16 07:30] VITALS: BP 149/80
[2025-01-16 07:35] LABS: Troponin I < 0.012 ng/ml
[2025-01-16] MEDS: NORVASC 10 MG PO (08:04)
[2025-01-16] MEDS: OMNICEF 300 MG PO (08:05)
--- NOTE | 2025-01-16 11:01 | W.PN.HOSP.TC ---
Today's Communication/Plan
-
Discharge today
Assessment / Plan
Assessment / Plan
Physical Exam
General: Comfortable, Conversant and Other (Disheveled appearing)
HEENT: Moist mucous membranes
Respiratory: Clear and Non Labored Respirations
Cardiac: S1/S2 and Regular Rhythm
GI: Soft and Non Tender. Positive bowel sounds.
Musculoskeletal: No Cyanosis and No Edema
Skin: Warm and Dry
Neuro: Awake, Alert and Nonfocal/grossly intact
Psych: Calm
Assessment/Plan
84 y/o female past medical history of hypertension who presents with increased confusion. Additional history obtain from patient's neighbor at the bedside. Neighbor initially noted some confusion after the holidays. Patient's sustained a
heart attack about a month ago and has been at a correction facility since that time. Over the last month the neighbor has noted signficant decline in the patient particularly increased confusion. Patient saw her primary care provider today
who notes a 10 lb weight loss. Neighbor expresses concern that patient is not caring for herself and not eating much at home.
Increased Confusion, suspect likely related to progressive dementia, possibly exacerbated by infection / UTI
-Confusion remains on and off
-Urinalysis is abnormal - changed to Cefdinir based on Proteus sensitivities -- continue Cefdinir for 3 more days
-CXR with no acute cardiopulmonary process
-Blood cultures with no growth to date
Nausea
Possible chronic dysphagia
-Nausea is possibly from antibiotics
-Abdomen is nontender patient reported no abdominal pain, patient it tolerating PO, patient's last bowel movement (brown colored) was yesterday, vital signs are stable
-I communicated (via [place] [employer]) on January 16, 2025 with on-call administrative accountant and she said that it is okay to do outpatient follow-up with gastroenterology office for the above issues
Weight Loss
-10lb weight loss noted by PCP suspect related to nutritional deficiency from poor oral intake
-Consult Dietary
Essential Hypertension
-Continue amlodipine
-Hold HCTZ
History of Right 6th Rib Fracture
DVT proph: Lovenox
Code Status: Full Code
Disposition: SNF
More than 30 minutes spent in discharge including
Final examination of the patient
Summarizing hospital stay
Instructions for continuing care to all relevant caregivers
Preparation of discharge records, prescriptions, and referral forms
Total time spent (in minutes): 37
Anticipated Discharge: Today
Subjective/Interval History
-
Date of Service: January 16, 2025
Patient was seen and examined. She had some nausea, but ate breakfast by herself and tolerated PO intake. Patient had a soft, formed and brown bowel movement yesterday, as per patient's nurse.
Objective Data
-
Vital Signs:
Vital Signs
Temp Pulse Resp BP Pulse Ox
97.9 F 68 16 149/80 97
01/16/25 07:30 01/16/25 07:30 01/16/25 07:30 01/16/25 07:30 01/16/25 07:30
I&O
01/15/25 01/16/25 01/17/25
06:59 06:59 06:59
Intake Total 360 / 360 440 / 440
Balance 360 / 360 440 / 440
[2025-01-16] MEDS: ZOFRAN 4 MG IV (11:35)
--- NOTE | 2025-01-16 12:03 | CM ---
VM on CM office line that pt has been approved for SNF by [facility], ref # [id number] 01/15-NRD 01/19. Fax updated clinicals to fax # [phone].
CM Called Tamie Sarah at [phone] and spoke with RN film vault supervisor Ela who will confirm with on-call admissions for the facility that pt can be accepted today. Left CM contact info for callback to confirm bed.
[2025-01-16] MEDS: TYLENOL 650 MG PO (12:23)
--- NOTE | 2025-01-16 14:55 | W.DCSUMMARY ---
Discharge Summary
Discharge Data
Date of Admission: 01/12/25
Date of Discharge: 01/16/25
Total time spent discharging patient (in min): 37
-
Pending Results: No
Hospital Course
84 y/o female past medical history of hypertension who presented with increased confusion. Her neighbor initially noted some confusion after the holidays. Patient's sustained a heart attack about a month prior and had been at a skilled
nursing facility since that time. Over the prior month, the neighbor had noted significant decline in the patient, particularly increased confusion. Patient saw her primary care provider on the day of presentation; the primary care provider noted
that patient had a 10 lb weight loss. Patient's neighbor expressed concern that patient was not caring for herself and not eating much at home. Patient's urinalysis suggested urinary tract infection therefore patient was started on antibiotics.
Patient's confusion improved. Patient's urine culture grew Proteus mirabilis and she was stable for discharge.
Discharge Plan
-
Patient Disposition: Skilled Nursing/SNF
Discharge Diagnosis/Procedures: Recent fracture of the right sixth rib as of January 02, 2025
Increased Confusion, suspect likely related to progressive dementia, possibly exacerbated by infection / UTI
Nausea, intermittent -- possibly related to antibiotics
Chronic intermittent dysphagia reported by patient
Weight Loss
Essential Hypertension
Abdomen X-Ray (as per radiologist's report):
'FINDINGS: AP supine and left lateral decubitus views of the abdomen.
Air is present within nondilated loops of small and large bowel.
There is no evidence of free intraperitoneal air.
Small calcifications over the pelvis are likely phleboliths.
Degenerative changes of the lumbar spine, greatest inferiorly. Mild to moderate degenerative change of both sacroiliac joints.
Bipolar left hip prosthesis is present, new since prior exam. Moderate degenerative change right hip joint.
IMPRESSION: No radiographic evidence for bowel obstruction or free intraperitoneal air.'
Condition: Good
Diet: As tolerated and Regular
Additional Diets: Thin Liquids for PO intake
Activity: With assistance
Driving Restrictions: No driving
Blood Work: CBC, BMP and Magnesium by January 17, 2025 or January 18, 2025
Other Services: PT and OT
Activity Restrictions/Additional Instructions:
Aspiration Precautions
Referrals:
Guerline Carvajal MD [Active, Gastroenterology] - in one to two weeks
Referral Note: Hospital Follow-Up. Intermittent Dysphagia. Intermittent Nausea. Weight Loss.
Yvette Redmond MD [Family Provider, Family Practice] - in less than 1 week
Referral Note: Hospital Follow-Up
Additional Discharge Medication Instructions: Continue home medication Pepcid 20 mg BID (patient's home medication)
Prescriptions:
New
cefdinir 300 mg Capsule
300 mg PO Q12 3 Days Qty: 6 0RF
famotidine [Pepcid] 20 mg tablet
20 mg PO BID Qty: 60 0RF
Continued
amlodipine 10 MG tablet
10 mg PO DAILY
therapeutic multivitamin Tablet
1 tab PO DAILY
potassium citrate 10 mEq (1,080 mg) Tablet Extended Release
10 meq PO BID
PreserVision AREDS 2,148 mcg-113 mg-45 mg-17.4mg Tablet
1 tab PO BID
calcium carbonate-vitamin D3 [Calcium 500 + D] 500 mg-10 mcg (400 unit) Tablet
1 tab PO BID
Discontinued
hydrochlorothiazide 25 mg Tablet
25 mg PO DAILY
Discharge Orders:
Discharge Patient (As Directed); Ordered 01/16/25
Ordered By: Polo Ford
Discharge Date and Time
Discharge Date/Time: 01/16/25 19:48
Print Language: MAORI
--- NOTE | 2025-01-16 15:01 | CM ---
CM spoke with Kannan/Tamie Sarah who confirmed pt can come today, auth info provided.
IMM done. Transport arranged 530-6pm grape picker.
Nurse # for report is [phone] option 1 for RN retail chain store area supervisor, Jenna.
Neighbor Monique aware, will come to bring clothes. [phone].
[2025-01-16 15:35] VITALS: BP 147/83
[2025-01-16] MEDS: LOVENOX SC (18:17)
--- NOTE | 2025-01-16 19:30 | PTCARENOTE ---
EMS to pick up operator Pt. Pt in no acute distress. report given to EMS personnel.
== END 2025-01-16 19:48 | DRG 884 ==
LOC: 4 EAST ACU 17:47
PROVIDERS: Nurse Practitioner; Physician Assistant Medical; ADMITTING PHYSICIAN Internal Medicine; ATTENDING PHYSICIAN Hospitalist; EMERGENCY PHYSICIAN Emergency Medicine; FAMILY PHYSICIAN Family Medicine
DX: F03.90 Unspecified dementia, unspecified severity, without behavioral disturbance, psychotic disturbance, mood disturbance, and anxiety (principal); N39.0 Urinary tract infection, site not specified; Z68.1 Body mass index [BMI] 19.9 or less, adult; I10 Essential (primary) hypertension; R63.4 Abnormal weight loss
CPT/HCPCS: 71046; 72072; 74019; 80048; 80053; 81003; 81015; 83690; 83735; 84484; 85025; 85027; 87040; 87086; 87088; 87186; 92523; 92610; 93005; 96374; 97116; 97163; 97167; 97530; 97535; 99285